=== PATIENT | male | born 1970 | race Caucasian/White ===

== ENCOUNTER 2018-04-08 10:19 | Inpatient (IN) | payer BC, OTHER ==
--- NOTE | 2018-04-08 10:25 | EDPHY ---
H & P Stated Complaint: abd pain LLQ x 5 days Time Seen by Provider: 04/08/18 10:24 HPI/ROS: CHIEF COMPLAINT: Left lower quadrant abdominal pain HISTORY OF PRESENT ILLNESS: 47-year-old male via private vehicle complaining of acute left lower quadrant abdominal pain for the past 5 days. Positive nausea. No vomiting. Bowel movements normal. No melena hematochezia. No testicular pain. No abdominal or genital trauma. No fever or chills. Last oral intake dinner last night PRIMARY CARE PROVIDER: Dr. Aubrey Decker REVIEW OF SYSTEMS: 10 systems reviewed and negative with the exception of the elements mentioned in the history of present illness PAST MEDICAL & SURGICAL HISTORY: no history of abdominal surgery SOCIAL HISTORY: Nonsmoker. . FAMILY HISTORY: diverticulitis history PHYSICAL EXAM (Prior to examination, patient consented to physical exam, hands were washed and my usual and customary physical exam procedures followed) 1) GENERAL: Well-developed, well-nourished, alert and oriented. Appears uncomfortable 2) HEAD: Normocephalic, atraumatic 3) HEENT: Pupils equal, round, reactive to light bilaterally. Sclera anicteric. 4) NECK: Full range of motion, no meningeal signs. 5) LUNGS: Clear auscultation bilaterally, no wheezes, no rhonchi, no retractions. 6) HEART: Regular rate and rhythm, no murmur, no heave, no gallop. 7) ABDOMEN: Guarding left lower quadrant, tender to palpation left lower quadrant. No guarding, no rebound, no focal tenderness, negative McBurney's, negative Armas's, negative Rovsing's, negative peritoneal sign, 8) MUSCULOSKELETAL: Moving all extremities, no focal areas of tenderness, no obvious trauma. No peripheral edema or discoloration. 9) BACK: No CVA tenderness, no midline vertebral tenderness, no fluctuance, no step-off, no obvious trauma, no visual or palpable abnormality. 10) SKIN: No rash, no petechiae. 11) : Normal male external genitalia bilateral testicles nontender, non high- riding, bilateral cremasteric reflex present and brisk. Bilateral inguinal exam unremarkable with no mass no hernia.. DIFFERENTIAL DIAGNOSIS: [ My differential diagnosis includes, but is not limited to, acute appendicitis, acute cholecystitis, bowel obstruction, acute pancreatitis, testicular torsion, gastritis. The patient understands that this diagnosis is provisional and can never be 100% accurate. This is a partial list of diagnoses considered. These considerations are based on history, physical exam, past history and reassessment. - Medical/Surgical History Hx Asthma: No Hx Chronic Respiratory Disease: No Hx Diabetes: No Hx Cardiac Disease: No Hx Renal Disease: No Hx Cirrhosis: No Hx Alcoholism: No Hx HIV/AIDS: No Hx Splenectomy or Spleen Trauma: No Other PMH: denies - Social History Smoking Status: Never smoked Constitutional: Initial Vital Signs Temperature (C) 36.9 C 04/08/18 10:21 Heart Rate 63 04/08/18 10:21 Respiratory Rate 16 04/08/18 10:21 Blood Pressure 123/77 H 04/08/18 10:21 O2 Sat (%) 99 04/08/18 10:21 O2 Delivery Mode Room Air Allergies/Adverse Reactions: erythromycin base Allergy (Verified 04/08/18 13:15) Vomiting Home Medications: Medication Instructions Recorded Ibuprofen [Motrin (*)] 200 mg PO DAILY PRN 04/08/18 Medical Decision Making - Diagnostics Imaging Results: Imaging Impressions Abdomen CT 04/08/18 10:46 Impression: 1. Acute sigmoid diverticulitis with microperforation and pericolonic inflammation with involvement extending anterior to the left psoas muscle, and associated with some pneumoretroperitoneum. There is no rim-enhancing abscess at this point. 2. Nonobstructive left nephrolithiasis. Findings were discussed with Keith Farley PA-C at 11:49, on 04/08/2018. Images reviewed myself ED Course/Re-evaluation: 10:31 a.m.: Patient is focally tender to palpation left lower quadrant. Will obtain i-STAT creatinine, laboratory studies and plan on CT imaging the abdomen and pelvis. Care of patient under supervision of secondary supervising physician Dr Calvillo . 11:50 a.m.: Discussed the imaging results with radiologist showing Patient has micro perforation of the sigmoid diverticuli with pneumoretroperitoneum. I reviewed the images myself. Will plan on admission. He remains NPO since dinner last night. 11:55 a.m.: Consultation with Dr. Cash Gunderson who request patient be given Toradol, Invanz and will admit. Patient receiving continued IV fluid. - Data Points Laboratory Results: Laboratory Results 04/08/18 10:35 04/08/18 10:35 04/08/18 04/08/18 04/08/18 10:45 10:35 10:35 WBC 11.49 10^3/uL H 10^3/uL (3.80-9.50) RBC 4.98 10^6/uL 10^6/uL (4.40-6.38) Hgb 16.1 g/dL g/dL (13.7-17.5) POC Hgb 16.7 gm/dL gm/dL (13.7-17.5) Hct 46.4 % % (40.0-51.0) POC Hct 49 % % (40-51) MCV 93.2 fL fL (81.5-99.8) MCH 32.3 pg pg (27.9-34.1) MCHC 34.7 g/dL g/dL (32.4-36.7) RDW 12.8 % % (11.5-15.2) Plt Count 325 10^3/uL 10^3/uL (150-400) MPV 10.5 fL fL (8.7-11.7) Neut % (Auto) 75.6 % H % (39.3-74.2) Lymph % (Auto) 16.7 % % (15.0-45.0) Clay % (Auto) 5.6 % % (4.5-13.0) Eos % (Auto) 1.0 % % (0.6-7.6) Baso % (Auto) 0.6 % % (0.3-1.7) Nucleat RBC Rel Count 0.0 % % (0.0-0.2) Absolute Neuts (auto) 8.69 10^3/uL H 10^3/uL (1.70-6.50) Absolute Lymphs (auto) 1.92 10^3/uL 10^3/uL (1.00-3.00) Absolute Monos (auto) 0.64 10^3/uL 10^3/uL (0.30-0.80) Absolute Eos (auto) 0.11 10^3/uL 10^3/uL (0.03-0.40) Absolute Basos (auto) 0.07 10^3/uL 10^3/uL (0.02-0.10) Absolute Nucleated RBC 0.00 10^3/uL 10^3/uL (0-0.01) Immature Gran % 0.5 % % (0.0-1.1) Immature Gran # 0.06 10^3/uL 10^3/uL (0.00-0.10) POC Sodium 142 mEq/L mEq/L (135-145) Sodium 140 mEq/L mEq/L (135-145) POC Potassium 3.9 mEq/L mEq/L (3.3-5.0) Potassium 4.2 mEq/L mEq/L (3.5-5.2) POC Chloride 102 mEq/L mEq/L (97-110) Chloride 104 mEq/L mEq/L (97-110) Carbon Dioxide 26 mEq/l mEq/l (22-31) POC Total CO2 27 mEq/L mEq/L (22-31) Anion Gap 10 mEq/L mEq/L (6-14) POC BUN 16 mg/dL mg/dL (7-23) BUN 17 mg/dL mg/dL (7-23) Creatinine 0.9 mg/dL mg/dL (0.7-1.3) POC Creatinine 0.9 mg/dL mg/dL (0.7-1.3) Estimated GFR > 60 Glucose 95 mg/dL mg/dL (70-100) POC Glucose 99 mg/dL mg/dL (70-100) Calcium 9.9 mg/dL mg/dL (8.5-10.4) Total Bilirubin 0.8 mg/dL mg/dL (0.1-1.4) Conjugated Bilirubin 0.4 mg/dL mg/dL (0.0-0.5) Unconjugated Bilirubin 0.4 mg/dL mg/dL (0.0-1.1) AST 89 IU/L H IU/L (17-59) ALT 250 IU/L H IU/L (21-72) Alkaline Phosphatase 213 IU/L H IU/L (38-126) Total Protein 8.1 g/dL g/dL (6.3-8.2) Albumin 4.8 g/dL g/dL (3.5-5.0) Lipase 45 IU/L IU/L (23-300) Medications Given: Acetaminophen (Tylenol) 1,000 mg PO Q8H ANNE Stop: 10/05/18 12:29 Last Admin: 04/08/18 13:23 Dose: 1,000 mg Discontinued Medications Hydromorphone HCl (Dilaudid) 1 mg IVP EDNOW ONE Stop: 04/08/18 11:38 Last Admin: 04/08/18 11:41 Dose: 1 mg Sodium Chloride (Ns) 1,000 mls @ 0 mls/hr IV EDNOW ONE; Wide Open PRN Reason: Protocol Stop: 04/08/18 10:28 Last Admin: 04/08/18 10:46 Dose: 1,000 mls Ertapenem 1 gm/ Sodium (Chloride) 100 mls @ 200 mls/hr IV EDNOW ONE PRN Reason: Protocol Stop: 04/08/18 12:23 Last Admin: 04/08/18 12:45 Dose: 100 mls Sodium Chloride (Ns) 1,000 mls @ 0 mls/hr IV ONCE ONE PRN Reason: Wide Open Stop: 04/08/18 12:00 Last Admin: 04/08/18 12:21 Dose: 1,000 mls Sodium Chloride (Ns) 1,000 mls @ 0 mls/hr IV ONCE ONE PRN Reason: Wide Open Stop: 04/08/18 12:03 Last Admin: 04/08/18 12:29 Dose: Not Given Ketorolac Tromethamine (Toradol) 15 mg IVP EDNOW ONE Stop: 04/08/18 11:55 Last Admin: 04/08/18 12:21 Dose: 15 mg Morphine Sulfate (Morphine) 6 mg IVP EDNOW ONE Stop: 04/08/18 10:28 Last Admin: 04/08/18 10:46 Dose: 6 mg Ondansetron HCl (Zofran) 4 mg IVP EDNOW ONE Stop: 04/08/18 10:28 Last Admin: 04/08/18 10:46 Dose: 4 mg Point of Care Test Results: Chemistry 04/08/18 10:45 POC Sodium 142 mEq/L mEq/L (135-145) POC Potassium 3.9 mEq/L mEq/L (3.3-5.0) POC Chloride 102 mEq/L mEq/L (97-110) POC Total CO2 27 mEq/L mEq/L (22-31) POC BUN 16 mg/dL mg/dL (7-23) POC Creatinine 0.9 mg/dL mg/dL (0.7-1.3) POC Glucose 99 mg/dL mg/dL (70-100) ISTAT H&H 04/08/18 10:45 POC Hgb 16.7 gm/dL gm/dL (13.7-17.5) POC Hct 49 % % (40-51) Departure - Departure Disposition: [facility] Inpatient Acute Clinical Impression: Diverticulitis large intestine Qualifiers: Diverticulitis bleeding: unspecified bleeding status Diverticulitis complication: with perforation and without abscess Qualified Code(s): K57.20 - Diverticulitis of large intestine with perforation and abscess without bleeding Condition: Fair
[2018-04-08] MEDS ORDERED: ONDANSETRON 4 MG/2 ML VIAL IVP ONE (10:27)
[2018-04-08] MEDS ORDERED: NS 1,000 ML IV ONE ×3 (10:27→12:02)
[2018-04-08 10:52] LABS: PLATELET COUNT 325 10^3/uL (150-400)
[2018-04-08] MEDS ORDERED: IOHEXOL 300 mgI/ML (OMNIPAQUE) 150 ML BTL IV ONE (11:12)
[2018-04-08] MEDS ORDERED: HYDROmorphONE/DILAUDID 1 MG/ML INJ IVP ONE (11:37)
[2018-04-08] MEDS ORDERED: ERTAPENEM 1 GM in NS 100 ML IV ONE (11:54)
[2018-04-08] MEDS ORDERED: KETOROLAC 15 MG/1 ML SDV IVP ONE (11:54)
[2018-04-08] MEDS ORDERED: ONDANSETRON 4 MG/2 ML VIAL IVP PRN (12:29)
[2018-04-08] MEDS ORDERED: ACETAMINOPHEN 500 MG TAB ONE (13:04)
[2018-04-08] MEDS: ACETAMINOPHEN 325 MG TAB PO SCH ×2 (13:23→20:05)
[2018-04-08] MEDS: LR 1,000 ML IV SCH ×2 (14:14→23:32)
[2018-04-08] MEDS: HYDROmorphONE/DILAUDID 1 MG/ML INJ IVP PRN ×2 (14:15→17:45)
--- NOTE | 2018-04-08 17:25 | GHP ---
[f rep st] PREOP HISTORY AND PHYSICAL DATE OF ADMISSION: 04/08/2018 HISTORY OF PRESENT ILLNESS: The patient has diverticulitis with micro perforation and a small focal area of contained pneumoperitoneum. He is a 47-year-old male who has complained of low level abdominal discomfort for several weeks. Sun he was flying a red-eye flight back from [place] and ended up sleeping bent over forward over his seatbelt. He had left lower quadrant hypogastric discomfort which he attributed to the seat belt . This was on . He had decreased appetite . On Sunday and Sunday he had drenchin g sweats at night. His pains fluctuated on Sunday and Sunday, such that he did go for a walk on , then felt worse when he returned home. This morning it was dramatically worse. He has been mo ving his bowels every day without difficulty. In retrospect, he feels he may have had 3 or 4 prior s imilar episodes. Note is made that his older sister has had diverticulitis treated by antibiotics an d his brother had a perforated diverticulitis, requiring a temporary diverting colostomy. There is no history of recent upper respiratory tract infection, diarrhea, antibiotics or travel in t he last 6 months or prior abdominal surgery. SOCIAL HISTORY: He smoked for 30 years starting at age 13. He smokes a quarter pack a day. He does drink half a bottle of wine 5-6 nights a week, although recently he has been cutting back. ALLERGIES: He has no known drug allergies, but does vomit when he takes erythromycin. MEDICATIONS: He does not currently take any medications. PAST SURGICAL HISTORY: Includes right foot surgery for his great toe. There was cartilage loss, and a microfracture was carried out. He has had surgery on his left shoulder for a bursitis. He has al so had a radial keratotomy for vision correction. PAST MEDICAL HISTORY: There is no history of rheumatic fever, tuberculosis, hepatitis, or transfusio ns. REVIEW OF SYSTEMS: He wears lenses for visual correction. He has had a concussion. He has 1 dental crown. He had a murmur as a child and is known to have 1 kidney stone. There are no limits on his activities. No history of steroid use. FAMILY HISTORY: His mother of a trauma at age 77. She fell down the stairs and had an intracra nial injury. His father at 83 of acute myelogenous leukemia. As mentioned, he has an older sis ter who is 61 and an older brother who is 58. There are no bleeding disorders, clotting disorders, d ifficulty with anesthesia in the patient or the family. PHYSICAL EXAMINATION: GENERAL: He is awake and alert, in mild distress. He is pleasant and coopera tive. HEAD: Skull is normocephalic and atraumatic. NECK: No carotid bruits and no thyroid enlarge ment. LYMPHATICS: No cervical, supraclavicular, axillary, or inguinal lymphadenopathy. BACK: Unre markable. LUNGS: Clear to auscultation. HEART: Cardiac exam shows S1, S2 to be normal. Normal spl it of S2 without murmurs, rubs, or gallops. EXTREMITIES: Unremarkable. ABDOMEN: He has tenderness with cough at a 6 in the left lower quadrant. He has minimal bowel sounds. To palpation, right upp er quadrant is 1 on a scale of 1-10, right mid abdomen is 1, right lower quadrant is 1, epigastrium 1 , periumbilical area is 2, suprapubic area is 4, left upper quadrant is 1, left mid abdomen is 5, lef t lower quadrant is 6. His CT scan does show sigmoid diverticulosis with a focal area of air collection in the mesentery of the sigmoid colon. His white count 11.5, hematocrit 46, platelet count 325. His AST is 81, ALT 250. His alkaline phosp hatase is 213. VITAL SIGNS: Blood pressure 123/77, heart rate 63, temperature 36.9, respirations 16, saturations on room air 99%. IMPRESSION: This patient appears to have a focal perforation. PLAN: We will treat him with IV antibiotics and bowel rest. If he improves, that will be continued, if he fails this approach, surgical intervention will be considered. /[id number]/MODL
[2018-04-08] MEDS: KETOROLAC 15 MG/1 ML SDV IVP SCH ×2 (17:42→23:44)
[2018-04-08] MEDS ORDERED: HYDROmorphONE/DILAUDID 1 MG/ML INJ IVP PRN (20:30)
[2018-04-08 21:02] LABS: PLATELET COUNT 268 10^3/uL (150-400)
[2018-04-09] MEDS: KETOROLAC 15 MG/1 ML SDV IVP SCH ×3 (04:47→18:43)
[2018-04-09] MEDS: ACETAMINOPHEN 325 MG TAB PO SCH (04:49)
[2018-04-09 05:54] LABS: PLATELET COUNT 262 10^3/uL (150-400)
[2018-04-09] MEDS: ERTAPENEM 1 GM in NS 100 ML IV SCH (09:21)
[2018-04-09] MEDS: LR 1,000 ML IV SCH ×2 (09:21→18:46)
[2018-04-09] MEDS: ENOXAPARIN 40 MG/0.4 ML SYR SC SCH (09:22)
--- NOTE | 2018-04-09 10:34 | SOAPPROG ---
SOAP Progress Note Assessment/Plan: Assessment/Plan: 47M admitted with diverticulitis with microperforation Hopefully no surgery during this hospital admission. Consider sigmoidectomy electively as an outpatient after acute episode resolved. Also consider colonoscopy as outpatient prior to surgery. No evidence of abscess on CT Labs improving and VSS Pain controlled IV antibiotics - invanz. will transition to levo/flagyl upon discharge NPO - continue. will likely advance tomorrow S: feeling well. Has had LLQ pain off and on for 1 month, no previous episodes. [place] work. O: laying in bed, comfortable, NAD No increased WOB No peripheral edema +BS, soft, nondistended, tender LLQ. No rebound or guarding No previous abdominal surgery incisions 04/09/18 10:39 04/09/18 10:42 Objective: Vital Signs Temp Pulse Resp BP Pulse Ox 36.8 C 56 L 16 110/75 93 04/09/18 08:00 04/09/18 08:00 04/09/18 08:00 04/09/18 08:00 04/09/18 08:00 Laboratory Results 04/09/18 05:26 04/09/18 05:26 04/08/18 04/09/18 04/10/18 05:59 05:59 05:59 Intake Total 1585 Balance 1585 ICD10 Worksheet Patient Problems: Problems Problem Status Onset Diverticulitis large intestine Acute
[2018-04-09] MEDS ORDERED: NS 500 ML IV ONE (12:00)
[2018-04-09] MEDS: ACETAMINOPHEN 500 MG TAB PO SCH ×2 (12:14→21:25)
--- NOTE | 2018-04-09 14:20 | PDMN ---
Medical Necessity Medical necessity: MCG M150 Diverticulitis, Acute, A-2 days: 47 yo w/ abd pain dx w/ acute diverticulitis w/ micro perforation. Initially OBS for monitoring and tx w/ IV antibx and bowel rest. Pt requiring additional MN as NPO status w / cont IVF meeting IP med nec for M150 w/ Inability to maintain oral hydration ( eg, needs IV fluid support) that persists after emergency department and observation care treatment. Change to IP status 04/09/18@1346 per PA order
[2018-04-09] MEDS ORDERED: ONDANSETRON 4 MG/2 ML VIAL ONE (21:29)
[2018-04-09] MEDS ORDERED: ONDANSETRON DISINTEGRATING 4 MG TAB PO PRN (21:40)
[2018-04-09] MEDS ORDERED: ONDANSETRON 4 MG/2 ML VIAL IVP PRN (21:40)
[2018-04-09] MEDS ORDERED: PROMETHAZINE HCL 25 MG/ML INJ IVP PRN (21:40)
[2018-04-10] MEDS: KETOROLAC 15 MG/1 ML SDV IVP SCH ×5 (00:03→23:37)
[2018-04-10] MEDS: LR 1,000 ML IV SCH ×2 (04:27→14:25)
[2018-04-10] MEDS: ACETAMINOPHEN 500 MG TAB PO SCH ×4 (04:51→20:06)
[2018-04-10 05:42] LABS: PLATELET COUNT 269 10^3/uL (150-400)
[2018-04-10] MEDS: ERTAPENEM 1 GM in NS 100 ML IV SCH (09:08)
[2018-04-10] MEDS: ENOXAPARIN 40 MG/0.4 ML SYR SC SCH (09:10)
--- NOTE | 2018-04-10 12:03 | ASMTCMCOM ---
CM Note CM Note Notes: 04/10/2018 Case Mangement Note Pt admitted for Sigmoid diverticulitis with perforation. There are no therapy evals ordered at this time. There are no case management d/c needs identified d/t pt age, marital status, employment status and independence with ADL's prior to admission. Pt may require IV abx at discharge. Case Management d/c poc: to be determined. Case Management to follow. Date Signed: 04/10/2018 12:02 PM Electronically Signed By:Karla Culver RN
--- NOTE | 2018-04-10 12:22 | SOAPPROG ---
SOAP Progress Note Assessment/Plan: Assessment/Plan: 47M admitted with diverticulitis with microperforation Abdominal pain continues to improve, urgent surgery unlikely Labs improving and VSS Pain controlled IV antibiotics - invanz. will transition to levo/flagyl upon discharge Advance diet to clear liquid this morning, advance to full liquid at end of day if continues to tolerate clears Discussed coloscopy after acute episode has resolved-at least 6 weeks Patient interested in scheduling surgery later this summer Discussed low fiber diet for the next 4 weeks with eventual goal of 30 grams fiber per day Dispo: if tolerates diet challenges today likely to go home tomorrow S: feeling better today, very mild discomfort. Passing flatus, no nausea this morning. Very hungry. O: laying in bed, comfortable, NAD Lungs CTA, No increased WOB HR regular, no arrhythmia, no peripheral edema, radial/DP pulses 2+ +BS, soft, nondistended, tender LLQ. No rebound or guarding Plan: 04/10/18 12:22 04/10/18 12:23 04/10/18 14:27 04/10/18 18:55 Objective: Vital Signs Temp Pulse Resp BP Pulse Ox 36.5 C 67 16 135/80 H 92 04/10/18 11:42 04/10/18 11:42 04/10/18 11:42 04/10/18 11:42 04/10/18 11:42 Laboratory Results 04/10/18 05:14 04/10/18 05:14 04/09/18 04/10/18 04/11/18 05:59 05:59 05:59 Intake Total 1700 Balance 1700 ICD10 Worksheet Patient Problems: Problems Problem Status Onset Diverticulitis large intestine Acute
[2018-04-11] MEDS: ACETAMINOPHEN 500 MG TAB PO SCH ×2 (04:24→12:56)
[2018-04-11] MEDS: KETOROLAC 15 MG/1 ML SDV IVP SCH ×2 (05:07→12:56)
[2018-04-11 05:44] LABS: PLATELET COUNT 269 10^3/uL (150-400)
[2018-04-11 07:40] VITALS: BP 135/80
[2018-04-11] MEDS: ERTAPENEM 1 GM in NS 100 ML IV SCH (09:15)
[2018-04-11] MEDS: ENOXAPARIN 40 MG/0.4 ML SYR SC SCH (09:27)
--- NOTE | 2018-04-11 12:06 | SOAPPROG ---
LUIS Progress Note Assessment/Plan: Assessment/Plan: 47M admitted with diverticulitis with microperforation/ no abscess Abdominal pain-only with deep palpation VSS-WBC WNL Pain controlled transition to levo/flagyl upon discharge Regular diet today Discussed coloscopy after acute episode has resolved-at least 6 weeks Patient interested in scheduling surgery later this summer Discussed low fiber diet for the next 4 weeks with eventual goal of 30 grams fiber per day S: feeling better today, very mild discomfort. Passing flatus, no nausea this morning. Tolerated full liquid diet fine yesterday. Having liquid BMs. O: laying in bed, comfortable, NAD Lungs CTA, No increased WOB HR regular, no arrhythmia, no peripheral edema, radial/DP pulses 2+ +BS, soft, nondistended, tender LLQ. No rebound or guarding Plan: 04/11/18 12:07 Objective: Vital Signs Temp Pulse Resp BP Pulse Ox 36.6 C 48 L 16 135/80 H 96 04/11/18 07:37 04/11/18 07:37 04/11/18 07:37 04/11/18 07:37 04/11/18 07:37 Laboratory Results 04/11/18 05:01 04/11/18 05:01 04/10/18 04/11/18 04/12/18 05:59 05:59 05:59 Intake Total 1700 1236 Balance 1700 1236 ICD10 Worksheet Patient Problems: Problems Problem Status Onset Diverticulitis large intestine Acute
--- NOTE | 2018-04-11 14:19 | ASMTLACE ---
PETERSONE Length of stay for Answers: 2 days current admission Acuity / Level of Answers: Yes Care: Did the patient have an inpatient admission? # of Emergency department Answers: 1-2 visits in the last 6 months Score: 6 Date Signed: 04/11/2018 02:18 PM Electronically Signed By:Karla Culver RN
--- NOTE | 2018-04-11 14:27 | ASDISCHSUM ---
Discharge Information Plan Status:Home with No Needs Medically Cleared to Leave:04/10/2018 Discharge Date:04/10/2018 CM D/C Disposition:Home, Routine, Self-Care ADT D/C Disposition:Home, Routine, Self-Care Projected Discharge Date:04/10/2018 Transportation at D/C:Family Discharge Delay Reason: Follow-Up Date:04/10/2018 Discharge Slot: Final Diagnosis: Placement Information Patient Contact Information Contact Name:ELIECER Relationship: Address:[address] City:[place] Alternate Phone: State/Zip Code:[place] [address] Email: Financial Information Financial Class:BCOP Primary Plan Desc: OUT OF STATE [facility] Primary Plan Number:[id number] Secondary Plan Desc: Secondary Plan Number: Assessment Information LACE LACE Length of stay for Answers: 2 days current admission Acuity / Level of Answers: Yes Care: Did the patient have an inpatient admission? # of Emergency department Answers: 1-2 visits in the last 6 months Score: 6 Date Signed: 04/11/2018 02:18 PM Electronically Signed By:Karla Culver RN [facility] CM Progress Note CM Note CM Note Notes: 04/10/2018 Case Mangement Note Pt admitted for Sigmoid diverticulitis with perforation. There are no therapy evals ordered at this time. There are no case management d/c needs identified d/t pt age, marital status, employment status and independence with ADL's prior to admission. Pt may require IV abx at discharge. Case Management d/c poc: to be determined. Case Management to follow. Date Signed: 04/10/2018 12:02 PM Electronically Signed By:Karla Culver RN Case Management Discharge Plan Note Case Management Discharge Discharge Order Complete? Answers: Yes Patient to Obtain Answers: Independently Medications Transportation Arranged Answers: Family/Friends Discharge Comments Notes: 04/11/2018 Case Management Note Pt to discharge independent with follow up as directed. Date Signed: 04/11/2018 02:26 PM Electronically Signed By:Karla Culver RN Intervention Information
--- NOTE | 2018-04-11 16:06 | GDS ---
[f rep st] DISCHARGE SUMMARY REASON FOR ADMISSION: The patient presented to the emergency department at [facility] on 04/08/2018 with 5-day duration of worsening left lower quadrant pain accompanied by nausea. A CT scan obtained showed acute sigmoid diverticulitis with microperforation, pericolonic inflammation, pneumoperitoneum without abscess. PRIMARY DIAGNOSIS: Diverticulitis, sigmoid colon, with microperforation and pneumoperitoneum. HOSPITAL COURSE: The patient was placed on IV fluids, IV antibiotics, pain control, and bowel rest. He had abdominal pain that decreased daily, and he tolerated clear to full liquid diet well. Pain and nausea well controlled, and he was discharged on day 4 with oral antibiotics and Tylenol to go home. CONDITIONS ON DISCHARGE: Ambulates independently. PRESCRIPTIONS: 1. Levofloxacin 750 mg orally daily for 7 days. 2. Flagyl 500 mg 3 times daily x7 days. 3. Acetaminophen 1000 mg by mouth every 8 hours as needed for pain. FOLLOWUP: Recheck at the clinic with [facility] in 2 weeks. /[id number]/MODL MTDD
== END 2018-04-11 14:43 | disposition home or self-care (01) | DRG 392 ==
LOC: F3E 13:42 → OBSVTOIN 04-09 13:46
PROVIDERS: ADMIT Surgery; ATTEND Surgery
DX: K57.20 Diverticulitis of large intestine with perforation and abscess without bleeding (principal); F17.210 Nicotine dependence, cigarettes, uncomplicated; Z87.442 Personal history of urinary calculi
CPT/HCPCS: 82435-PO; 82565-PO; 82947-PO; 84132-PO; 84295-PO; 84520-PO; 85014-ER; 96365; G0378; J1170; J1335; J1650; J1885; J2270; J2405; Q9967